=== PATIENT | male | born 1970 | race Caucasian/White ===

== ENCOUNTER 2016-06-15 09:05 | Emergency (ER) | payer OTHER ==
[~2016-06-15] VITALS: Ht 167.6 cm; Wt 76.5 kg
[2016-06-15 09:39] VITALS: Ht 167.6 cm; Wt 76.5 kg
--- NOTE | 2016-06-15 11:18 | ERA ---
ER Documentation Chief Complaint Date/Time DATE: 06/15/16 TIME: 11:17 Chief Complaint DIZZINESS,WEAKNESS,CHEST PRESSURE,NAUSEA HPI The patient is a 45-year-old male, presenting to the ER because of intermittent intermittent dizziness for the last 3 days after he went to [place] 4 days ago. He feels as if the room is spinning, symptoms is better if he closes his eyes and lays still. He denies similar symptoms previously. He took Antivert from his mother with good response. He denies headache, syncope, near syncope, neck pain, chest pain, dyspnea, abdominal pain, vomiting, dysuria, diarrhea. He does not smoke, drinks socially Past medical history/surgical history: None ROS All systems reviewed and are negative except as per history of present illness. Medications Home Meds Active Scripts Meclizine Hcl* (Antivert*) 12.5 Mg Tab, 25 MG PO Q6H Y for DIZZINESS, #20 TAB Prov:ALEENA MEDRANO MD 06/15/16 Ondansetron (Ondansetron Odt) 4 Mg Tab.rapdis, 4 MG PO Q6H Y for NAUSEA AND/OR VOMITING, #10 TAB Prov:ALEENA MEDRANO MD 06/15/16 Allergies Allergies: Coded Allergies: No Known Allergy (Unverified , 06/05/11) PMhx/Soc History of Surgery: No Anesthesia Reaction: No Hx Neurological Disorder: No Hx Respiratory Disorders: No Hx Cardiac Disorders: No Hx Psychiatric Problems: No Hx Miscellaneous Medical Probl: No Hx Alcohol Use: No Hx Substance Use: No Hx Tobacco Use: No Physical Exam Vitals Vital Signs Date Time Temp Pulse Resp B/P Pulse Ox O2 Delivery O2 Flow Rate FiO2 06/15/16 14:04 98.1 62 14 115/69 98 Room Air 06/15/16 11:50 98.0 72 16 124/82 98 06/15/16 09:39 98.1 70 18 129/88 98 Physical Exam Const: No acute distress. Head: Atraumatic. Eyes: Normal Conjunctiva. ENT: Normal External Ears, Nose and Mouth. Neck: Full range of motion. No meningismus. Resp: Clear to auscultation bilaterally. Cardio: Regular rate and rhythm, no murmurs. Abd: Soft, non distended, normal bowel sounds, non tender. Skin: No petechiae or rashes. Back: No midline or flank tenderness. Ext: No cyanosis, or edema. Neur: Awake and alert. No focal deficit Psych: Normal Mood and Affect. Result Diagram: 06/15/16 1140 06/15/16 1140 Results 24 hrs Laboratory Tests Test 06/15/16 11:40 White Blood Count 7.110^3/ul Red Blood Count 4.8610^6/ul Hemoglobin 15.3g/dl Hematocrit 45.1% Mean Corpuscular Volume 92.8fl Mean Corpuscular Hemoglobin 31.5pg Mean Corpuscular Hemoglobin Concent 33.9g/dl Red Cell Distribution Width 12.0% Platelet Count 67868^3/UL Mean Platelet Volume 9.6fl Neutrophils % 62.7% Lymphocytes % 28.8% Monocytes % 6.9% Eosinophils % 1.0% Basophils % 0.3% Nucleated Red Blood Cells % 0.0/100WBC Neutrophils # 4.510^3/ul Lymphocytes # 2.110^3/ul Monocytes # 0.510^3/ul Eosinophils # 0.110^3/ul Basophils # 0.010^3/ul Nucleated Red Blood Cells # 0.010^3/ul Prothrombin Time 13.3Sec Prothrombin Time Ratio 1.0 INR International Normalized Ratio 1.01 Activated Partial Thromboplast Time 28.3Sec Sodium Level 141mmol/L Potassium Level 4.4mmol/L Chloride Level 101mmol/L Carbon Dioxide Level 29mmol/L Anion Gap 15 Blood Urea Nitrogen 13mg/dl Creatinine 0.82mg/dl Glucose Level 111mg/dl Calcium Level 9.4mg/dl Current Medications Medications (Trade) Dose Ordered Sig/Sathya Route PRN Reason Start Time Stop Time Status Last Admin Dose Admin Meclizine HCl (Antivert) 25 mg ONCE ONCE PO 06/15/16 11:30 06/15/16 11:31 DC 06/15/16 11:44 Ondansetron HCl (Zofran Inj) 4 mg ONCE STAT IV 06/15/16 11:24 06/15/16 11:26 DC 06/15/16 11:44 Procedures/MDM EKG: Read by emergency physician Rate/Rhythm: Normal Sinus Rhythm 70 beats/min QRS, ST, T-waves: No ST elevation, no T inversion, sinus arrhythmia Impression: Abnormal EKG [place] [address] Radiology Main Line: [phone] DIAGNOSTIC IMAGING REPORT Patient: AIXA SPENCER : 1970 Age: 45 Sex: M [id number] DOS: 06/15/16 1124 Ordering MD: ALEENA MEDRANO MD Location: E/R Room/Bed: PROCEDURE: Noncontrast CT Head. CLINICAL INDICATION: Syncope. TECHNIQUE: Noncontrast CT of the head was obtained. The administered radiation dose was CTDI vol = 44.26 mGy, DLP = 720.23 mGy-cm. One or more of the following dose reduction techniques were used: Automated exposure control, Adjustment of the mA and/or kV according to patient size, or Use of iterative reconstruction technique. COMPARISON: There are no similar studies submitted for comparison. FINDINGS: The ventricles and sulci are within normal limits. There is no loss of lynne-white differentiation to suggest acute territorial infarction. There is no acute intracranial hemorrhage or extra-axial fluid collection. There is no mass effect. No midline shift is identified. The orbits are within normal limits. The paranasal sinuses are well aerated. No destructive osseous lesion is identified. There is mild ectasia of the left V4 vertebral artery segment. IMPRESSION: No acute intracranial hemorrhage or extra-axial fluid collection. Further findings as detailed above. RPTAT: PP .Salvador Lockhart MD, MD Date Time Electronically viewed and signed by .Salvador Lockhart MD, MD on 06/15/2016 13:15 .F/ CC: ALEENA MEDRANO MD MEDICAL MAKING DECISION: The patient is a 45-year-old male, presenting to the ER because of acute vertigo, most likely benign positional vertigo. He was treated with Zofran IV and Antivert p.o. for nausea and dizziness with good response. The differential diagnoses considered include but are not limited to central causes such as cerebellar infarct, cerebellar hemorrhage, cerebellar tumor, acoustic neuroma, peripheral causes such as benign positional vertigo, labyrinthitis, medication, Meniere's disease. Departure Diagnosis: Primary Impression: Dizziness Condition: Good Comments He was discharged with Antivert and Zofran ODT I discussed the findings with the patient. I advised the patient to follow-up with the primary physician in about 1-2 days, sooner if needed and return if any concern. The patient's blood pressure was elevated (>120/80) but appears stable without evidence of hypertension emergency or urgency. The patient was counseled about the risks of hypertension and urged to pursue outpatient monitoring and therapy within a week with their primary care physician. ALEENA MEDRANO MD Jun 15, 2016 11:18
[2016-06-15] MEDS ORDERED: ONDANSETRON 4 MG INJ IV STA (11:24)
[2016-06-15] MEDS ORDERED: MECLIZINE 12.5 MG TAB PO ONE (11:30)
[2016-06-15 12:02] LABS: ADD SCAN DIFF NO
[2016-06-15 12:09] LABS: BASOPHILS % 0.3 % (0.0-2.0); EOSINOPHILS # 0.1 10^3/ul (0.0-0.5); HEMATOCRIT 45.1 % (42.0-52.0); HEMOGLOBIN 15.3 g/dl (14.0-18.0); LYMPHOCYTES # 2.1 10^3/ul (0.8-2.9); LYMPHOCYTES % 28.8 % (15.0-51.0); MEAN CORPUSCULAR HEMOGLOBIN 31.5 pg (29.0-33.0); MEAN CORPUSCULAR HGB CONC 33.9 g/dl (32.0-37.0); MEAN CORPUSCULAR VOLUME 92.8 fl (82.0-101.0); MEAN PLATELET VOLUME 9.6 fl (7.4-10.4); MONOCYTE # 0.5 10^3/ul (0.3-0.9); MONOCYTES % 6.9 % (0.0-11.0); NEUTROPHIL # 4.5 10^3/ul (1.6-7.5); NEUTROPHILS % 62.7 % (39.0-77.0); PLATELET COUNT 194 10^3/UL (140-415); RED BLOOD COUNT 4.86 10^6/ul (4.70-6.10); WHITE BLOOD COUNT 7.1 10^3/ul (4.8-10.8)
[2016-06-15 12:12] LABS: POTASSIUM 4.4 mmol/L (3.5-5.1)
[2016-06-15 12:15] LABS: CREATININE 0.82 mg/dl (0.61-1.24)
[2016-06-15 12:16] LABS: CALCIUM 9.4 mg/dl (8.4-10.2)
[2016-06-15 12:25] LABS: INR 1.01; PROTIME 13.3 Sec (12.2-14.2)
[2016-06-15 12:26] LABS: PARTIAL THROMBOPLASTIN TIME 28.3 Sec (25.0-35.0)
--- NOTE | 2016-06-15 13:15 | RADRPT ---
PROCEDURE: Noncontrast CT Head. CLINICAL INDICATION: Syncope. TECHNIQUE: Noncontrast CT of the head was obtained. The administered radiation dose was CTDI vol = 44.26 mGy, DLP = 720.23 mGy-cm. One or more of the following dose reduction techniques were used: Au tomated exposure control, Adjustment of the mA and/or kV according to patient size, or Use of iterat duy reconstruction technique. COMPARISON: There are no similar studies submitted for comparison. FINDINGS: The ventricles and sulci are within normal limits. There is no loss of lynne-white differentiation to suggest acute territorial infarction. There is no acute intracranial hemorrhage or extra-axial fluid collection. There is no mass effect. No midline shift is identified. The orbits are within normal limits. The paranasal sinuses are well aerated. No destructive osseous lesion is identified. There is mild ectasia of the left V4 vertebral artery s egment. IMPRESSION: No acute intracranial hemorrhage or extra-axial fluid collection. Further findings as detailed above. RPTAT: PP .Salvador Lockhart MD, MD Date Time Electronically viewed and signed by .Salvador Lockhart MD, on 06/15/2016 13:15 .F/
[2016-06-15] MEDS ORDERED: ONDA4TAB14 PO (13:49)
[2016-06-15] MEDS ORDERED: MECL12.574 PO (13:49)
[2016-06-15 14:04] VITALS: BP 115/69; PULSE 62; RESP 14; TEMP 98.1
== END 2016-06-15 14:05 | disposition home or self-care (01) ==
LOC: FTE 09:05 → E/R 14:05
DX: R42 Dizziness and giddiness (principal); R40.2142 Coma scale, eyes open, spontaneous, at arrival to emergency department; R40.2252 Coma scale, best verbal response, oriented, at arrival to emergency department; R40.2362 Coma scale, best motor response, obeys commands, at arrival to emergency department; R11.0 Nausea; R07.89 Other chest pain
CPT/HCPCS: 70450; 80048; 85025; 85610; 85730; 93005; J2405; Z7610; 36415; 96374

== ENCOUNTER 2018-02-04 05:30 | Emergency (ER) | END 2018-02-04 06:45 | disposition home or self-care (01) ==

== ENCOUNTER → 2018-02-21 | Emergency (ER) | END | disposition home or self-care (01) ==

== ENCOUNTER 2018-03-26 07:24 | Emergency (ER) | payer OTHER ==
[~2018-03-26] VITALS: Ht 167.6 cm; Wt 70.4 kg
[~2018-03-26 07:24] MED LIST: HYDR-3980 PO; TAMS-14 PO
[2018-03-26 07:30] VITALS: Ht 167.6 cm; Wt 70.4 kg
[2018-03-26] MEDS ORDERED: ONDANSETRON 4 MG INJ IV STA (07:59)
[2018-03-26] MEDS ORDERED: morphine 4 MG/ML VIAL IV STA (07:59)
[2018-03-26] MEDS ORDERED: HYDR-3980 PO (09:50)
[2018-03-26] MEDS ORDERED: TAMS-14 PO (09:50)
--- NOTE | 2018-03-26 09:53 | ERD ---
ER Documentation Chief Complaint Chief Complaint Complains of back and flank pain x 2 days HPI This is a 47-year-old male who has a history of right kidney stone 3 mm in the ureter and this was diagnosed back in January. The patient says that he followed up with his urologist and they did a KUB and did not show stones that thought he passed it. The patient says this morning he had sudden sharp pain in the right flank region again is very similar to last months episode. No hematuria dysuria or nausea vomiting. He says his pain in the ER now is basically gone. No testicular pain. ROS All systems reviewed and are negative except as per history of present illness. Medications Home Meds Active Scripts Hydrocodone/Acetaminophen ([place] 10-325 Tablet) 1 Each Tablet, 1 TAB PO Q6H PRN for PAIN, #9 TAB Prov:LUPE PAK. DO 03/26/18 Tamsulosin Hcl* (Flomax*) 0.4 Mg Cap.er.24h, 0.4 MG PO DAILY, #14 CAP Prov:LUPE PAK. DO 03/26/18 Tamsulosin Hcl* (Flomax*) 0.4 Mg Cap.er.24h, 0.4 MG PO BID, #14 CAP Prov:JASPAL SOLIMAN. 02/21/18 Hydrocodone/Acetaminophen ([place] 10-325 Tablet) 1 Each Tablet, 1 TAB PO Q6H PRN for PAIN, #20 TAB Prov:JASPAL SOLIMAN S. 02/21/18 Allergies Allergies: Coded Allergies: No Known Allergy (Unverified , 02/04/18) PMhx/Soc Medical and Surgical Hx: pt denies Surgical Hx History of Surgery: No Anesthesia Reaction: No Hx Neurological Disorder: No Hx Respiratory Disorders: No Hx Cardiac Disorders: No Hx Psychiatric Problems: No Hx Miscellaneous Medical Probl: Yes (Kidney Stones) Hx Alcohol Use: Yes (Ocasionally) Hx Substance Use: No Hx Tobacco Use: No Smoking Status: Never smoker FmHx Family History: No coronary disease Physical Exam Vitals Vital Signs Date Temp Pulse Resp B/P (MAP) Pulse Ox O2 O2 Flow FiO2 Time Delivery Rate 03/26/18 65 20 112/79 98 Room Air 08:25 (90) 03/26/18 98.1 64 20 167/109 99 07:30 (128) Physical Exam Const: [Well-developed, well-nourished] Head: [Atraumatic, normocephalic] Eyes: [Normal Conjunctiva, PERRLA, EOMI, normal sclera, no nystagmus] ENT: [Normal External Ears, Nose and Mouth, moist mucus membranes.] Neck: [Full range of motion. No meningismus, no lymphadenopathy.] Resp: [Clear to auscultation bilaterally, no wheezing, rhonchi, rales] Cardio: [Regular rate and rhythm, no murmurs, S1 S2 present] Abd: [Soft, non tender x 4, non distended. Normal bowel sounds, no guarding or rebound, no pulsitile abdominal masses or bruits] Skin: [No petechiae or rashes, no ecchymosis , no maculopapular rash] Back: [No midline or flank tenderness] Ext: [No cyanosis, or edema, FROM x 4, normal inspection, neurovascularly intact x 4] Neur: [Awake and alert, STR 5/5 x 4, sensation intact x 4, no focal findings, cerebellum intact] Psych: [Normal Mood and Affect] Result Diagram: 03/26/18 0807 03/26/18 0807 Results 24 hrs Laboratory Tests Test 03/26/18 08:07 White Blood Count 8.6 10^3/ul Red Blood Count 4.67 10^6/ul Hemoglobin 15.0 g/dl Hematocrit 43.7 % Mean Corpuscular Volume 93.6 fl Mean Corpuscular Hemoglobin 32.1 pg Mean Corpuscular Hemoglobin Concent 34.3 g/dl Red Cell Distribution Width 11.9 % Platelet Count 211 10^3/UL Mean Platelet Volume 9.6 fl Immature Granulocytes % 0.200 % Neutrophils % 74.6 % Lymphocytes % 17.3 % Monocytes % 7.4 % Eosinophils % 0.3 % Basophils % 0.2 % Nucleated Red Blood Cells % 0.0 /100WBC Immature Granulocytes # 0.020 10^3/ul Neutrophils # 6.4 10^3/ul Lymphocytes # 1.5 10^3/ul Monocytes # 0.6 10^3/ul Eosinophils # 0.0 10^3/ul Basophils # 0.0 10^3/ul Nucleated Red Blood Cells # 0.0 10^3/ul Urine Color YELLOW Urine Clarity SLIGHTLY CLOUDY Urine pH 6.0 Urine Specific [place] 1.016 Urine Ketones TRACE mg/dL Urine Nitrite NEGATIVE mg/dL Urine Bilirubin NEGATIVE mg/dL Urine Urobilinogen NEGATIVE mg/dL Urine Leukocyte Esterase NEGATIVE [place]/ul Urine Microscopic RBC 6 /HPF Urine Microscopic WBC 2 /HPF Urine Mucus MANY /HPF Urine Hemoglobin 2+ mg/dL Urine Glucose NEGATIVE mg/dL Urine Total Protein NEGATIVE mg/dl Sodium Level 142 mmol/L Potassium Level 4.1 mmol/L Chloride Level 101 mmol/L Carbon Dioxide Level 30 mmol/L Anion Gap 11 Blood Urea Nitrogen 13 mg/dl Creatinine 1.10 mg/dl Est Glomerular Filtrat Rate mL/min > 60 mL/min Glucose Level 117 mg/dl Calcium Level 9.7 mg/dl Current Medications Medications Dose Sig/Sathya Start Time Status Last (Trade) Ordered Route PRN Stop Time Admin Dose Reason Admin Morphine 4 mg ONCE STAT 03/26/18 DC 03/26/18 Sulfate IV 07:59 08:23 (morphine) 03/26/18 08:00 Ondansetron 4 mg ONCE STAT 03/26/18 DC 03/26/18 HCl (Zofran IV 07:59 08:23 Inj) 03/26/18 08:00 Procedures/MDM MR #: [id number] DOS: 03/26/18 0759 Ordering MD: LUPE PAK DO Location: E/R Room/Bed: PROCEDURE: CT abdomen and pelvis without contrast. CLINICAL INDICATION: Right flank pain TECHNIQUE: CT scan of the abdomen and pelvis without contrast was performed and is reconstructed at 2.5 mm contiguous axial intervals from the dome of the diaphragm to the inferior pubic rami.. The patient was scanned without intravenous contrast. Sagittal and coronal reformatted images were obtained from the axial source images. The calculated radiation dose measures 452 mGy centimeters. The CTDI measures 8 mGy. Individualized dose optimization technique was used for the performance of this exam. This included 1. Automated exposure control. 2. Adjustment of the mA and / or kV according to the patient's size. 3. Use of iterative reconstructed technique. COMPARISON: CT abdomen pelvis February 04, 2018 FINDINGS: The lung bases are clear of any infiltrate or nodule. No effusion is seen. The liver is of normal size, contour and attenuation with intrahepatic ductal dilatation. No gallstones are visualized. No splenic, adrenal or pancreatic abnormalities present. Kidneys are of normal size and contour. No calculus or masses seen. Again noted is mild right hydroureter nephrosis with a 3 mm stone at the ureterovesic ular junction. There is trace right perinephric stranding. Left intrarenal collecting system and ureter are of normal course and caliber with no stone. No bladder mass or stone is present. Prostate and seminal vesicles are normal. There is no aneurysm. No adenopathy is present. No bowel mass or obstruction is present. The appendix is normal. No phlegmon, ascites or pneumoperitoneum is visualized. The osseous structures are intact. IMPRESSION: Mild right hydroureter nephrosis with 3 mm calculus ureterovesicular junction. No significant change. 2.2 centimeter ill-defined hypodense mass inferior aspect posterior segment right lobe of the liver. Suggest dynamic postcontrast CT or MRI for more definitive diagnosis. Hepatic cyst. .Antonio Quan MD, MD Date Time Electronically viewed and signed by .Antonio Quan MD, MD on 03/26/2018 08:35 .A/ CC: LUPE PAK DO [id number] The patient has a urologist and I will print out a copy of his report of CT scan and have him follow-up this week for a stone removal. The patient is pain-free at this time and he has been given warning signs to return Departure Diagnosis: Primary Impression: Kidney stone Condition: Stable Patient Instructions: Kidney Stone (Urine) Referrals: (Family) LUPE PAK DO Mar 26, 2018 09:53
[2018-03-26 10:15] VITALS: BP 122/66; PULSE 78; RESP 19
== END 2018-03-26 10:16 | disposition home or self-care (01) ==
LOC: E/R 07:24
DX: N20.0 Calculus of kidney (principal); R40.2142 Coma scale, eyes open, spontaneous, at arrival to emergency department; R40.2362 Coma scale, best motor response, obeys commands, at arrival to emergency department; R40.2252 Coma scale, best verbal response, oriented, at arrival to emergency department
CPT/HCPCS: 36415; 74176; 80048; 81001; 85025; 96374; 96375; J2270; J2405; Z7502